=== PATIENT | female | born 1965 | race Caucasian/White ===

== ENCOUNTER 2021-04-15 14:59 | Emergency (ER) | payer OTHER, SELFPAY ==
[2021-04-15 15:29] VITALS: BP 167/100; PULSE 66; RESP 17; TEMP 36.9; O2SAT 96
[2021-04-15 15:44] VITALS: BP 169/94; PULSE 78; O2SAT 99
--- NOTE | 2021-04-15 16:04 | XRR_ITS ---
PROCEDURE INFORMATION: Exam: XR Right Shoulder Exam date and time: 04/15/2021 4:04 PM Age: 56 years old Clinical indication: Pain; Shoulder; Right; Patient HX: No known injury, overworked it TECHNIQUE: Imaging protocol: XR Right shoulder. Views: 2 or more views. Total images: 3 COMPARISON: CR Chest 1 [place] [id number] 05/15/2016 3:03 PM FINDINGS: Bones/joints: No visible evidence of active or acute osseous pathology. Synovial osteochondromatosis subdeltoid bursal space. No visible significant degenerative disease/primary or secondary osteoarthritis. Soft tissues: Unremarkable. XR/XR shoulder RT min 2V* [id number] IMPRESSION: 1. Nonacute. 2. Synovial osteochondromatosis subdeltoid bursal space.
--- NOTE | 2021-04-15 16:04 | ED_ITS ---
HPI - Extremity Injury (Upper) General: Chief Complaint: Extremity Injury, Upper Stated Complaint: RIGHT ARM ABD SHOULDER PAIN Time Seen by Provider: 04/15/21 15:43 Source: patient and family Mode of arrival: ambulatory Limitations: no limitations History of Present Illness: HPI narrative: Patient is a 56-year-old female presents to ED today along with her daughter who provides translation for concerns of right shoulder pain. Daughter tells me that she overdid it over the weekend stating that she was picking up her grandchildren all weekend. She states she has pain in the shoulder since. She is not having any numbness or tingling to her extremity. No color/temperature changes. She has no other complaints at this time. She apparently was sent over from urgent care for imaging of her shoulder. complaint: injury to: right and shoulder Place: home Severity: moderate Relieving factors: immobilization Exacerbating factors: movement of extremity Associated symptoms: Reports no associated symptoms; Denies neck pain Review of Systems Card: Denies: chest pain Resp: Denies: dyspnea GI: Denies: abdominal pain Musc: Reports: joint pain (R shoulder); Denies: neck pain, back pain, extremity pain, extremity swelling or joint swelling Neuro: Denies: headache(s), numbness in extremities or sensory changes PFS ED PFSH: Social History (Updated 04/15/21 @ 14:15 by Telma Olmstead LPN) Smoking and tobacco status: never smoked Physical Exam Const: COMMON NORMALS: no acute distress, average body habitus, patient oriented x3, no limitations, healthy appearing, alert and well nourished Chest: COMMONS NORMALS: normal inspection of the chest and normal palpation of entire chest wall Resp: COMMON NORMALS: normal respiratory effort and clear to auscultation bilaterally AUSCULTATION: clear to auscultation bilaterally Cardio: COMMON NORMALS: regular rate and regular rhythm RATE: regular rate RHYTHM: regular rhythm Extremity: COMMON NORMALS: capillary refill normal GENERAL: Yes normal exam except as noted RIGHT UPPER EXTREMITY: Yes shoulder joint (TTP lateral glenohumeral joint) Right shoulder: Yes Right shoulder joint ROM exam (limited flexion/abduction; painful ER/IR) and Yes Right shoulder joint neurovascular exam (normal) Neuro: COMMON NORMALS: patient oriented x3, moves all extremities, no focal motor deficits and no sensory deficits noted SENSORIUM/ORIENTATION: Yes alert Course Vital Signs: Vital signs: Vital Signs Temperature 98.4 F 04/15/21 15:29 Pulse Rate 78 04/15/21 15:44 Respiratory Rate 17 04/15/21 15:29 Blood Pressure 169/94 04/15/21 15:44 Pulse Oximetry 99 04/15/21 15:44 MDM - Extremity Injury (Upper) MDM Narrative: Medical decision making narrative: I think family was under the impression that they were sent here for advanced imaging. I told patient we are not able to do non-emergent MRIs from the ED. Patient's XR shows some calcific tendinitis. Will treat with anti-inflammatories and steroids. They do have the name of a primary care provider, Dr. Munoz, that they state they can follow-up with. He can go over further options including conservative treatment, referral to orthopedics, physical therapy, and/or MRI imaging. Discharge Plan Discharge Patient Disposition: Home Clinical Impression: Calcific tendinitis of right shoulder Condition: Stable Prescriptions: New ibuprofen 800 mg tablet 800 mg PO Q8H PRN (Reason: pain) Qty: 20 RF: 0 Medrol (Dugra) 4 mg tablets,dose pack See Rx Instructions .ROUTE .COMPLEX Qty: 21 RF: 0 Discharge Orders: Discharge ED (Routine); Ordered 04/15/21 Ordered By: Tawnya Kirk Patient Instructions: Calcific Tendinitis (ED) Coding Level of Care Code ED Primary Health Organisation Manager for Jalen Joseph Exam Detailed
[2021-04-15] MEDS: dexamethasone 10 mg/mL INJ 6 MG IM (16:16)
[2021-04-15] MEDS: ketorolac 30 mg/mL INJ IM (16:16)
== END 2021-04-15 16:57 | disposition home or self-care (01) ==
PROVIDERS: Emergency Provider Physician Assistant
DX: M75.31 Calcific tendinitis of right shoulder (principal)
CPT/HCPCS: 73030; 96372; 99283; J1100; J1885